=== PATIENT | female | born 1970 | race Caucasian/White ===

== ENCOUNTER → 2019-08-21 10:48 | Outpatient (CLI) | payer OTHER, BC, SELFPAY ==
--- NOTE | ~2019-08-21 | XR_ITS ---
EXAMINATION: XR chest 2V 08/21/2019 11:09 INDICATION: Cough PROCEDURE: 2 view chest COMPARISON: 11/19/2015 FINDINGS: The lungs are clear. The cardiomediastinal silhouette is within normal limits. There are no pleural effusions. There is no pneumothorax suspected. IMPRESSION: 1: NO ACUTE CARDIOPULMONARY DISEASE. Reviewed, dictated and finalized at [facility]. Reviewed, dictated and finalized at [facility]. [employer]
== END ==
PROVIDERS: PCP Family Medicine Adolescent Medicine; Visit Provider Physician Assistant
DX: R05 Cough (principal)
CPT/HCPCS: 71046

== ENCOUNTER 2020-10-28 09:44 | Outpatient (CLI) | payer OTHER, BC, SELFPAY | END 2020-10-28 09:45 | disposition home or self-care (01) | LOC: ANHCOVIDVC 09:44 | PROVIDERS: PCP Family Medicine Adolescent Medicine | DX: Z23 Encounter for immunization (principal) | CPT/HCPCS: 0001A; 91300 ==

== ENCOUNTER 2020-11-18 10:41 | Outpatient (CLI) | payer OTHER, BC, SELFPAY | END 2020-11-18 10:42 | disposition home or self-care (01) | LOC: ANHCOVIDVC 10:42 | PROVIDERS: PCP Family Medicine Adolescent Medicine | DX: Z23 Encounter for immunization (principal) | CPT/HCPCS: 0002A; 91300 ==

== ENCOUNTER 2021-02-25 10:02 | Emergency (ER) | payer OTHER, BC, SELFPAY ==
[2021-02-25 10:08] VITALS: BP 127/64; PULSE 96; RESP 18; TEMP 36.7; O2SAT 98
--- NOTE | 2021-02-25 10:17 | ED.URI ---
HPI - URI/Sore Throat General Chief Complaint: Upper Respiratory Infection Stated Complaint: sore throat/congesiton/fever Time Seen by Provider: 02/25/21 10:10 Source: patient and RN notes reviewed History of Present Illness HPI Narrative: Patient is a 50-year-old female who presents the urgent care with complaints of sore throat, mild cough, runny nose, congestion, drainage, fever, fatigue. Patient states that it started on February 21 after she was at a large public event a few days prior. Patient states that she had a negative PCR on . States that she has been using Tylenol Cold and flu with mild improvements. Reports of increased fatigue over the last 24 hours. Denies of any shortness of breath or chest pain. Denies of any known exposure to Covid. Patient states she has a strong history of bronchitis and pneumonia with last diagnosis being in August. No other acute complaints. No acute distress noted. Patient aware of the plan of care. Some parts of this dictation were generated by voice recognition software and may contain typographical and/or grammatical inaccuracies. Related Data Allergies Allergy/AdvReac Type Severity Reaction Status Date / Time levofloxacin [From Levaquin] Allergy Unknown Verified 02/25/21 10:12 Review of Systems Review of Systems: Narrative: CONSTITUTIONAL: Reports a fever, chills, sweats, fatigue EYES: Denies visual changes, redness, or discharge. ENT: Reports of rhinorrhea, congestion and sore throat CARDIOVASCULAR: Denies chest pain, palpitations, or edema. RESPIRATORY: Reports a mild nonproductive cough GASTROINTESTINAL: Denies abdominal pain, nausea, vomiting, or diarrhea. GENITOURINARY: Denies dysuria or hematuria. SKIN: Denies rash or itching. MUSCULOSKELETAL: Denies back pain, joint pain, or myalgia. NEUROLOGIC: Denies headache, numbness, or weakness. All other systems reviewed are negative, except as documented in HPI. PMFSH Comments At the time of my signature, I reviewed and agree with the nursing past medical, surgical, social, and family history. There is no relevant family history pertinent to the patient complaint. Exam Narrative: Exam Narrative: GENERAL: This is a well-nourished, well-developed patient, in no apparent distress. HEAD: normocephalic, atraumatic. EYES: PERRL. Sclera clear/white. Vision is grossly intact. EARS: External ears normal, auditory canals clear and without drainage, TMs normal without perforation. Hearing grossly intact. NOSE: External nose normal with no obvious nasal discharge, mild bilateral erythemic nares with clear rhinorrhea THROAT: Mucous membranes moist, posterior pharynx clear. Mild postnasal drainage NECK: Neck supple, non-tender without lymphadenopathy CARDIOVASCULAR: Regular rate and rhythm without murmurs, gallops, or rubs. RESPIRATORY: Clear to auscultation. Breath sounds equal bilaterally. No wheezes, rales, or rhonchi. SKIN: warm, intact with no suspicious lesions or rash, good texture and turgor. NEURO: awake, alert, and oriented to person, place and time. There were no obvious focal neurologic abnormalities. EXTREMITIES: No clubbing, cyanosis, or edema. Course Vital Signs Vital signs: Vital Signs Temperature 98.1 F 02/25/21 10:08 Pulse Rate 96 02/25/21 10:08 Respiratory Rate 18 02/25/21 10:08 Blood Pressure 127/64 02/25/21 10:08 Pulse Oximetry 98 02/25/21 10:08 Temperature 98.1 F 02/25/21 10:08 Pulse Rate 96 02/25/21 10:08 Respiratory Rate 18 02/25/21 10:08 Blood Pressure 127/64 02/25/21 10:08 Pulse Oximetry 98 02/25/21 10:08 Reviewed MDM - URI/Sore Throat MDM Narrative Medical decision making narrative: Reviewed lab results with the patient. She is aware that strep swab was negative. Educated patient on culture and we will call within 72 hours if culture is positive and antibiotics are necessary. Advised the patient to complete oral antibiotic regimen as prescribed that will cover both sinu
[2021-02-27 16:50] LABS: SARS-CoV-2 RNA PCR Negative
== END 2021-02-25 10:42 | disposition home or self-care (01) ==
PROVIDERS: Emergency Provider Nurse Practitioner Family; PCP Family Medicine Adolescent Medicine
DX: J02.9 Acute pharyngitis, unspecified (principal); J32.9 Chronic sinusitis, unspecified; Z20.822 Contact with and (suspected) exposure to COVID-19
CPT/HCPCS: 87081; 87880; 99213; C9803; G0463; U0003; U0005

== ENCOUNTER 2021-07-08 13:15 | Emergency (ER) | payer OTHER, BC, SELFPAY ==
[2021-07-08 13:24] VITALS: BP 121/73; PULSE 80; RESP 16; TEMP 36.6; O2SAT 99
--- NOTE | 2021-07-08 13:52 | ED.EYEPROB ---
HPI - Eye Problem General Chief complaint: Eye Problems Stated complaint: Sore Throat,Eye Pain Time Seen by Provider: 07/08/21 13:40 Source: patient and RN notes reviewed Mode of arrival: ambulatory Limitations: no limitations History of Present Illness HPI Narrative: Flakita 50-year-old female who ambulated into the exit. Patient states she has today her left eye was watery with clear drainage. Patient states she woke up today and right her right eye is also watery and reddened the left eye is reddened as well. Patient states her eyes were crusted with yellow drainage when she woke up this morning. Patient states it felt like she had glue to her eyelashes. Patient also states she is had a sore throat for 1 day. Patient also states she has been exposed to Covid at work. Patient denies any injury MD chief complaint: eye redness Related Data Home Medications Medication Instructions Recorded Confirmed multivitamin [Daily Multivitamin] tablet 07/08/21 Allergies Allergy/AdvReac Type Severity Reaction Status Date / Time levofloxacin [From Levaquin] Allergy Unknown Verified 07/08/21 13:22 adhesive tape AdvReac Redness of Verified 07/08/21 13:22 Skin Review of Systems Review of Systems: CONSTITUTIONAL: Denies body aches, fever, chills, or sweats. EYES: Denies visual changes,bilateral eye redness and drainage ENT: Denies rhinorrhea, congestion, +sore throat, denies otalgia. CARDIOVASCULAR: Denies chest pain, palpitations, or edema. RESPIRATORY: Denies cough or dyspnea. GASTROINTESTINAL: Denies abdominal pain, nausea, vomiting, or diarrhea. GENITOURINARY: Denies dysuria or hematuria. SKIN: Denies rash, itching, or wounds. MUSCULOSKELETAL: Denies back pain, joint pain, or myalgia. NEUROLOGIC: Denies headache, numbness, tingling, or weakness. PSYCH: Denies depression or anxiety. All systems reviewed & are unremarkable except as noted in HPI and below PMFSH Comments At time of signature, I have reviewed and agree with nursing past medical, surgical, social and family history unless otherwise noted. Please see nursing chart for further information. There is no relevant family history pertinent to the presenting complaint Exam Narrative: GENERAL: Well-appearing, well-nourished, and in no acute distress. HEAD: Normocephalic, atraumatic. EYES: EOMI. erythema noted to right and left eye. Moderate amount of whitish-yellow discharge is noted from the left eye. ENT: Mucous membranes pink and moist. Nares clear. No rhinorrhea. TMs normal bilaterally. Posterior pharynx is minimally erythemic without edema. Minimal postnasal drainage is noted . Uvula midline. NECK: Normal AROM. Supple. No lymphadenopathy. CHEST: No respiratory distress. MUSCULOSKELETAL: No bony tenderness. EXTREMITIES: Normal range of motion. No edema. SKIN: Warm, dry, no rash. Capillary refill normal. Normal skin turgor. NEURO: No focal deficits. Alert and oriented x3. Gait steady. PSYCH: Normal affect. No signs of depression or anxiety. Course Vital Signs Vital signs: Vital Signs Temperature 36.6 C 07/08/21 13:24 Pulse Rate 80 07/08/21 13:24 Respiratory Rate 16 07/08/21 13:24 Blood Pressure 121/73 07/08/21 13:24 Pulse Oximetry 99 07/08/21 13:24 Temperature 36.6 C 07/08/21 13:24 Pulse Rate 80 07/08/21 13:24 Respiratory Rate 16 07/08/21 13:24 Blood Pressure 121/73 07/08/21 13:24 Pulse Oximetry 99 07/08/21 13:24 Reviewed MDM - Eye Problem MDM Narrative Medical decision making narrative: Patient has bilateral erythema to eyes with clear to yellow drainage. Patient woke up with her eyes matted shut. This started in her left eye yesterday. Patient does have postnasal drainage. Differential Diagnosis Differential diagnosis: Likely conjunctivitis Medical Records Attestation: I reviewed the patient's medical records. Lab Data Attestation: I reviewed the patient's lab results. Critical Care Time
== END 2021-07-08 14:35 | disposition home or self-care (01) ==
PROVIDERS: Emergency Provider Nurse Practitioner Family; PCP Family Medicine Adolescent Medicine
DX: H10.9 Unspecified conjunctivitis (principal); Z20.822 Contact with and (suspected) exposure to COVID-19; J45.909 Unspecified asthma, uncomplicated
CPT/HCPCS: 87426; 99213; C9803; G0463

== ENCOUNTER 2022-01-14 10:19 | Emergency (ER) | payer OTHER, BC, SELFPAY ==
--- NOTE | ~2022-01-14 | XR_ITS ---
XR chest 2V DATE: 01/14/2022 11:06 INDICATION: Cough for 4 days. History of asthma. Nonsmoker. TECHNIQUE: PA and lateral views COMPARISON: 08/21/2019 PA and lateral chest FINDINGS: Normal heart size. No hilar or mediastinal enlargement. Moderate hyperinflation of the lungs. No pulmonary infiltrate or consolidation, pleural effusion or p ulmonary vascular congestion or pneumothorax. Mild thoracic scoliosis. IMPRESSION: Bilateral hyperinflation; otherwise no active cardiac pulmonary disease Reviewed, dictated and finalized at [facility]. IMPRESSION: Bilateral hyperinflation; otherwise no active cardiac pulmonary dis ease
[2022-01-14 10:24] VITALS: BP 131/75; PULSE 98; RESP 16; TEMP 36.8; O2SAT 100
--- NOTE | 2022-01-14 11:07 | ED.URI ---
HPI - URI/Sore Throat General Chief Complaint: Upper Respiratory Infection Stated Complaint: sore throat,fatigue,fever Time Seen by Provider: 01/14/22 10:48 Source: patient Mode of arrival: ambulatory Limitations: no limitations History of Present Illness HPI Narrative: Patient presents today complaining of 5-day history of congestion, postnasal drip, cough with wheezing, sore throat, fever up to 101.8, shortness of breath Symptoms have worsened over the past 2 days. She has been taking Tylenol Cold and using her albuterol inhaler without relief. History of asthma. Related Data Home Medications Medication Instructions Recorded Confirmed multivitamin tablet 07/08/21 Allergies Allergy/AdvReac Type Severity Reaction Status Date / Time levofloxacin [From Levaquin] Allergy Unknown Verified 01/14/22 10:36 adhesive tape AdvReac Redness of Verified 01/14/22 10:36 Skin Review of Systems Review of Systems: CONSTITUTIONAL: Denies body aches, chills, or sweats.+ Fever, fatigue EYES: Denies visual changes, redness, or discharge. ENT: Denies rhinorrhea, sore throat, or otalgia.+ Congestion, postnasal drip CARDIOVASCULAR: Denies chest pain, palpitations, or edema. RESPIRATORY: + Cough, wheezing, shortness of breath GASTROINTESTINAL: Denies abdominal pain, nausea, vomiting, or diarrhea. GENITOURINARY: Denies dysuria or hematuria. SKIN: Denies rash, itching, or wounds. MUSCULOSKELETAL: Denies back pain, joint pain, or myalgia. NEUROLOGIC: Denies headache, numbness, tingling, or weakness. PSYCH: Denies depression or anxiety. [facility] Past Medical History Medical History Asthma Comments At time of signature, I have reviewed and agree with nursing past medical, surgical, social and family history unless otherwise noted. Please see nursing chart for further information. There is no relevant family history pertinent to the presenting complaint Exam Narrative: GENERAL: Mildly ill-appearing, well-nourished, and in no acute distress. HEAD: Normocephalic, atraumatic. EYES: EOMI. No redness or drainage. Conjunctivae normal. ENT: Mucous membranes pink and moist. Nares congested.. No rhinorrhea. TMs normal bilaterally. Throat normal. Uvula midline. NECK: Normal AROM. Supple. No lymphadenopathy. CHEST: No respiratory distress. Clear to auscultation. HEART: Regular rate and rhythm. No murmur appreciated. Normal peripheral pulses. EXTREMITIES: Normal range of motion. No edema. SKIN: Warm, dry, no rash. Capillary refill normal. Normal skin turgor. NEURO: No focal deficits. Alert and oriented x3. Gait steady. PSYCH: Normal affect. No signs of depression or anxiety. Course Course Level of Care: Express Care Visit Vital Signs Vital signs: Vital Signs Temperature 98.2 F 01/14/22 10:24 Pulse Rate 98 01/14/22 10:24 Respiratory Rate 16 01/14/22 10:24 Blood Pressure 131/75 01/14/22 10:24 Pulse Oximetry 100 01/14/22 10:24 Oxygen Delivery Room Air 01/14/22 10:24 Temperature 98.2 F 01/14/22 10:24 Pulse Rate 98 01/14/22 10:24 Respiratory Rate 16 01/14/22 10:24 Blood Pressure 131/75 01/14/22 10:24 Pulse Oximetry 100 01/14/22 10:24 Oxygen Delivery Room Air 01/14/22 10:24 Reviewed. Pt has been instructed to follow up with her PCP regarding her elevated blood pressure today. MDM - URI/Sore Throat Differential Diagnosis Differential diagnosis: Likely upper respiratory infection, viral infection, bronchitis and other (Influenza, strep throat) Lab Data Attestation: I reviewed the patient's lab results. Labs: Influenza A Screen Negative Reference Range: Negative Influenza B Screen Negative Reference Range: Negative Strep Screen Presumptive Negative *(R
== END 2022-01-14 11:24 | disposition home or self-care (01) ==
PROVIDERS: Emergency Provider Nurse Practitioner
DX: J06.9 Acute upper respiratory infection, unspecified (principal); J40 Bronchitis, not specified as acute or chronic; J45.909 Unspecified asthma, uncomplicated
CPT/HCPCS: 71046; 87081; 87804; 87880; 99213; G0463

== ENCOUNTER → 2022-04-07 07:30 | Outpatient (CLI) | payer OTHER, BC, SELFPAY ==
--- NOTE | ~2022-04-07 | XR_ITS ---
EXAMINATION: XR chest 2V DATE: 04/07/2022 07:50 INDICATION: Dyspnea. Chest pain. TECHNIQUE: Frontal and lateral views of the chest were obtained. COMPARISON: Chest 2 views 01/14/2022 FINDINGS: There is no pneumonia, pleural effusion, or pneumothorax. The heart size is normal. IMPRESSION: 1. No acute cardiopulmonary disease. Reviewed, dictated and finalized at [facility].
== END ==
PROVIDERS: PCP Family Medicine Adolescent Medicine; Visit Provider Family Medicine Adolescent Medicine
DX: R60.0 Localized edema (principal); R06.00 Dyspnea, unspecified
CPT/HCPCS: 71046

== ENCOUNTER 2025-02-04 10:05 | Outpatient (CLI) | payer BC, SELFPAY ==
--- NOTE | ~2025-02-04 | MM_ITS ---
EXAMINATION: MM screening caden BI w esteban HISTORY: Screening TECHNIQUE: Craniocaudal and mediolateral oblique 3-D tomosynthesis images were obtained and synthetic 2-D images were generated. CAD analysis was submitted and interpreted. COMPARISON: No prior mammogram is available for comparison at this institution. BREAST PARENCHYMAL COMPOSITION: Not Dense: The breasts are almost entirely fatty. FINDINGS: There is no evidence of suspicious mass, calcification, or architectural distortion to sugg est malignancy in either breast. There has been no suspicious interval change. IMPRESSION: 1. No mammographic evidence of malignancy. 2. Recommend routine screening mammography in one year. BI-RADS Category 1: Negative Reviewed, dictated and finalized at [facility].
== END 2025-02-04 10:06 | disposition home or self-care (01) ==
LOC: MICIMG 10:07
PROVIDERS: PCP Obstetrics & Gynecology; Visit Provider Obstetrics & Gynecology
DX: Z12.31 Encounter for screening mammogram for malignant neoplasm of breast (principal)
CPT/HCPCS: 77063; 77067

== ENCOUNTER → 2025-05-26 14:45 | Outpatient (CLI) | payer BC, SELFPAY ==
--- NOTE | ~2025-05-26 | XR_ITS ---
EXAMINATION: XR hip RT min 2V DATE: 05/26/2025 15:19 INDICATION: Pain in right hip TECHNIQUE: 3 images of the right hip were obtained. COMPARISON: None. FINDINGS: Mild degenerative change in the hips. There is bowel gas and stool projecting over the pelvis which limits evaluation. There are a few less than 1.0 cm calcifications projecting over the pelvis which may represent phleboliths, however, a distal ureteral stone or bladder stone or possible. [ No radiographic evidence for an acute fracture or dislocation.] [ No radiopaque foreign body.] [ No sclerotic bone lesions.] IMPRESSION: 1. No fracture. 2. Mild degenerative change in the right hip. If symptoms persist or worsen consider a short-term follow-up study or additional imaging for further assessment. Reviewed, dictated and finalized at location [facility]. IMPRESSION: 1. No fracture. 2. Mild degenerative change in the right hip. If symptoms persist or worsen consider a short-term follow-up study or addition al imaging for further assessment.
--- NOTE | ~2025-05-26 | XR_ITS ---
[id number] Indication: M54.2 - Cervicalgia Comparison: None Findings: Grade 1 anterolisthesis of C2 on C3 and C3 on C4 C4 on C5, no fracture is identified Moderate loss of disc height at C4-5 C5-6 and C6-7 with narrowing of the foramina bilaterally at this level. Soft tissues unremarkable Impression: No acute abnormality. Reviewed, dictated and finalized at [facility]. Impression: No acute abnormality.
== END ==
LOC: EXPCRAD 14:47
PROVIDERS: PCP Nurse Practitioner Family; Visit Provider Nurse Practitioner Family
DX: M16.11 Unilateral primary osteoarthritis, right hip (principal); G89.29 Other chronic pain; M54.2 Cervicalgia
CPT/HCPCS: 72040; 73502

== ENCOUNTER → 2025-06-11 11:07 | Outpatient (CLI) | payer BC, SELFPAY ==
--- NOTE | ~2025-06-11 | XR_ITS ---
EXAMINATION: XR wrist RT 2V, 06/11/2025 11:11 CDT HISTORY: RT wrist pain, anterior/ulnar, few months no injury COMPARISON: No comparisons available. Findings: No acute fracture or malalignment. No significant degenerative changes. Soft tissues unremarkable. Impression: No acute fracture or malalignment. Reviewed, dictated and finalized at [facility]. Impression: No acute fracture or malalignment.
--- NOTE | ~2025-06-11 | XR_ITS ---
EXAMINATION: XR finger 3rd RT min 2V, 06/11/2025 11:11 CDT HISTORY: M79.644 - Pain in rt finger few months, no injury COMPARISON: No comparisons available. Findings: No acute fracture or malalignment. No significant degenerative changes. Soft tissues unremarkable. Impression: No acute fracture or malalignment. Reviewed, dictated and finalized at location [facility]. Impression: No acute fracture or malalignment.
== END ==
LOC: EXPCRAD 11:09
PROVIDERS: PCP Nurse Practitioner Family; Visit Provider Nurse Practitioner Family
DX: M25.531 Pain in right wrist (principal); M79.644 Pain in right finger(s)
CPT/HCPCS: 73100; 73140